=== PATIENT | female | born 1990 | race Caucasian/White ===

== ENCOUNTER 2017-03-29 06:53 | Emergency (ER) | payer OTHER ==
[~2017-03-29] VITALS: Ht 165.1 cm; Wt 77.0 kg
[~2017-03-29 06:53] MED LIST: ADVAIR; CLARITIN10 M3 PO; FLEXERIL10 MG PO; FLOMAX0.4 MG PO; KEFLEX500 MG PO; LAMICTAL XR200 MG PO; LAMICTAL100 MG PO; LEVAQUIN750 MG PO; MUCUS RELIEF600 M1 PO; PEPCID20 MG PO; PERCOCET 5/31 TABLET PO; PREDNISONE10 MG PO; PREDNISONE20 MG PO; PROVENTIL,2.5 MG/3 M IH; PROVENTIL2.5 MG/3 M IH; PYRIDIUM200 MG PO; SINGULAIR; VENTOLIN HFA18 GM IH; ZOFRAN4 MG PO
[2017-03-29 07:30] LABS: HEMATOCRIT 40.9 % (36.0-46.0); MCH 30.4 PG (29.0-34.0); MCHC 33.7 G/DL (30.0-36.0); MCV 90.1 FL (83-99); RBC DIS.WIDTH-CV 12.3 % (11.8-14.6); RBC DIS.WIDTH-SD 40.2 % (39-53); RED BLOOD COUNT 4.54 M/uL (3.80-5.20); WHITE BLOOD COUNT 9.8 K/uL (4.1-10.2)
[2017-03-29 08:01] LABS: ANION GAP 9 MEQ/L (2-14); CHLORIDE 109 MEQ/L (99-109); GFR ESTIMATE (CALCULATED) > 59 mL/min/; GLUCOSE 90 mg/dL (70-99); SAMPLE HEMOLYSIS CHECK 0; SAMPLE ICTERIC CHECK 0; SAMPLE LIPEMIA CHECK 0; SODIUM 140 MEQ/L (136-147); UREA NITROGEN (BUN) 17 mg/dL (9-23)
[2017-03-29 08:13] LABS: PLAT.SUFFICIENCY ADEQUATE; PLATELET CLUMPS PRESENT - PLATELET COUNT APPEARS ADQ.; PLATELET COUNT UNABLE TO REPORT K/uL (156-360)
[2017-03-29] MEDS ORDERED: PREDNISONE20 MG PO (08:57)
[2017-03-29] MEDS ORDERED: PROVENTIL HFA6.7 GM IH (08:57)
[2017-03-29 09:43] VITALS: BP 122/68
== END 2017-03-29 09:44 | disposition home or self-care (01) ==
LOC: EME 06:53
DX: J45.901 Unspecified asthma with (acute) exacerbation (principal); Z91.040 Latex allergy status; Z88.0 Allergy status to penicillin; Z88.8 Allergy status to other drugs, medicaments and biological substances
CPT/HCPCS: 71020; 80048; 85027; 94640; 94644; J1100

== ENCOUNTER 2017-04-30 15:45 | Emergency (ER) | payer OTHER ==
[~2017-04-30] VITALS: Ht 165.1 cm; Wt 79.0 kg
[~2017-04-30 15:45] MED LIST changes: +PROVENTIL HFA6.7 GM IH
[2017-04-30 16:04] LABS: HEMATOCRIT 41.5 % (36.0-46.0); MCH 30.3 PG (29.0-34.0); MCHC 33.7 G/DL (30.0-36.0); MCV 89.8 FL (83-99); PLATELET COUNT 238 K/uL (156-360); RBC DIS.WIDTH-CV 12.5 % (11.8-14.6); RBC DIS.WIDTH-SD 41.2 % (39-53); RED BLOOD COUNT 4.62 M/uL (3.80-5.20); WHITE BLOOD COUNT 12.3 K/uL (4.1-10.2)
[2017-04-30 16:18] LABS: CHLORIDE 107 mEq/L (99-109); POTASSIUM 3.8 mEq/L (3.7-5.4); SODIUM 139 mEq/L (136-147)
[2017-04-30 16:20] LABS: GLUCOSE 74 mg/dL (70-99)
[2017-04-30 16:24] LABS: CREATININE 0.9 mg/dL (0.6-1.3); GFR ESTIMATE (CALCULATED) > 59 mL/min/
[2017-04-30 16:25] LABS: UREA NITROGEN (BUN) 14 mg/dL (9-23)
[2017-04-30] MEDS ORDERED: PREDNISONE20 MG PO (19:15)
[2017-04-30 19:29] VITALS: BP 111/77
== END 2017-04-30 19:30 | disposition home or self-care (01) ==
LOC: EME 15:45
DX: J45.901 Unspecified asthma with (acute) exacerbation (principal); Z91.040 Latex allergy status; Z88.0 Allergy status to penicillin; Z88.8 Allergy status to other drugs, medicaments and biological substances
CPT/HCPCS: 71020; 80048; 85027; 94644; 99281; 99285; J7030; J7512